=== PATIENT | male | born 1955 | race Caucasian/White ===

== ENCOUNTER 2017-04-28 13:37 | Day surgery (SDC) | payer BC ==
[2017-04-27 09:18] VITALS: BMI 30.4
[~2017-04-28 13:37] MED LIST: LACTATED RINGERS 1,000 ML IV SCH
[2017-04-28 14:05] VITALS: RESP 16; TEMP 97.9
[2017-04-28] MEDS ORDERED: LIDOCAINE 1% 20 ML VIAL (10MG/ML) FOR IV START INTRADERMA ONE (14:06)
[2017-04-28] MEDS ORDERED: PROPOFOL 10 MG/ML 20 ML VIAL IV ONE (14:25)
[2017-04-28] MEDS ORDERED: fentaNYL (PF) 50 MCG/ML 2 ML AMP ONE (14:25)
[2017-04-28] MEDS ORDERED: MIDAZOLAM 2 MG/2 ML VIAL ONE (14:25)
--- NOTE | 2017-04-28 14:25 | P.GSHP ---
History of Present Illness H&P Date: 04/28/17 Chief Complaint: Screening colonoscopy 61 yrs old male presents for colonoscopy. Personal history of colon polyps . Last scope 3 yrs ago. No change in bowel habits. 90 lbs weight loss with weight watchers Past Medical History Past Medical History: GERD/Reflux, Hyperlipidemia, Hypertension, Sleep Apnea/ CPAP/BIPAP Additional Past Medical History / Comment(s): hx colon polyps History of Any Multi-Drug Resistant Organisms: None Reported Past Surgical History: Orthopedic Surgery Additional Past Surgical History / Comment(s): sleep apnea surgery,lt knee arthroscopy Past Anesthesia/Blood Transfusion Reactions: No Reported Reaction Additional Past Anesthesia/Blood Transfusion Reaction / Comment(s): no hx blood transfusion Smoking Status: Current some day smoker - Past Family History Father Family Medical History: Cancer, Myocardial Infarction ([place]) Additional Family Medical History / Comment(s): leukemia Mother Family Medical History: Cancer, Diabetes Mellitus Brother(s) Family Medical History: Cancer Additional Family Medical History / Comment(s): leukemia Medications and Allergies Home Medications Medication Instructions Recorded Confirmed Type Ascorbic Acid [Vitamin C] 500 mg PO HS 04/27/17 04/27/17 History Aspirin 81 mg PO DAILY 04/27/17 04/27/17 History Citalopram Hydrobromide [CeleXA] 20 mg PO HS 04/27/17 04/27/17 History Lisinopril 40 mg PO HS 04/27/17 04/27/17 History Multivit-Min/FA/Lycopen/Lutein 1 each PO DAILY 04/27/17 04/27/17 History [Centrum Silver Men Tablet] Omeprazole 20 mg PO HS 04/27/17 04/27/17 History Simvastatin 40 mg PO HS 04/27/17 04/27/17 History Allergies Allergy/AdvReac Type Severity Reaction Status Date / Time No Known Allergies Allergy Verified 04/27/17 09:08 Surgical - Exam Vital Signs Temp Pulse Resp BP Pulse Ox 97.9 F 54 L 16 137/86 99 04/28/17 13:59 04/28/17 13:59 04/28/17 13:59 04/28/17 13:59 04/28/17 13:59 General: Patient is alert and oriented to time, place and person and cooperative with exam. He is not in acute distress. HEENT: No pallor, no icterus, no thyroid enlargement, no cervical lymphadenopathy. Chest: Bilateral equal breath sounds present. No wheezes, no crackles. Cardiovascular: Regular rate and rhythm Neurologic: Cranial nerves II-XII intact. Strength upper and lower extremities 5/5. No focal neurologic deficits. Gait is normal. Psychiatric: No anxiety or psychosis. No suicidal thoughts. Assessment and Plan (1) Screen for colon cancer Status: Acute (2) Personal history of colonic polyps Status: Acute Plan: Colonoscopy with possible bx Informed consent obtained. Risks, benefits and potential complications explained
--- NOTE | 2017-04-28 14:33 | P.OP ---
Date of Procedure: 04/28/17 Preoperative Diagnosis: History of colon polyps Sigmoid diverticulosis Postoperative Diagnosis: Same Procedure(s) Performed: Colonoscopy Implants: Anesthesia: MAC Surgeon: Megan Hester Condition: stable Disposition: PACU Indications for Procedure: 61 years old male presents for surveillance colonoscopy. Prior colonoscopy 3 years ago and had multiple polyps. Operative Findings: Colonoscopy Sigmoid diverticulosis Description of Procedure: The patient was brought to the endoscopy suite and placed in lateral decubitus position. IV sedation was given as per anesthesia team. Patient was on continuous vitals and pulse oximetry monitoring throughout the procedure. A timeout was performed to verify correct patient and correct procedure. Perianal examination did not show any external hemorrhoids. Digital rectal examination was performed. No masses or gross blood. A well-lubricated Olympus colonoscope was passed per rectally and was gradually advanced beyond the sigmoid colon, splenic flexure, transverse colon, hepatic flexure and cecum. The ileocecal valve was visualized, The colonoscope was gradually withdrawn inspecting all the mucosal surfaces. Bowel prep was good. No polyps, masses, AV malformations noted. Sigmoid diverticulosis noted without any evidence of acute diverticulitis. The scope was gradually withdrawn and retroflexed in the rectum . Grade 1 internal hemorrhoids seen. Total withdrawal time was greater than 6 minutes . Patient tolerated the procedure well and was taken to post anesthesia care unit in stable condition. Recommend repeat colonoscopy in 5 years .
[2017-04-28 15:26] VITALS: BP 122/74; PULSE 57
== END 2017-04-28 15:52 | disposition home or self-care (01) ==
LOC: ORWHC2ENDO 13:37
PROVIDERS: ATTEND Surgery
DX: Z12.11 Encounter for screening for malignant neoplasm of colon (principal); K57.30 Diverticulosis of large intestine without perforation or abscess without bleeding; Z86.010 Personal history of colon polyps; K21.9 Gastro-esophageal reflux disease without esophagitis; E78.5 Hyperlipidemia, unspecified; I10 Essential (primary) hypertension; G47.30 Sleep apnea, unspecified; Z72.0 Tobacco use; Z79.82 Long term (current) use of aspirin; Z79.899 Other long term (current) drug therapy
CPT/HCPCS: J2250; J3010; J2704; G0105

== ENCOUNTER → 2021-01-29 | Outpatient (CLI) | payer MEDICARE, BC ==
--- NOTE | 2021-01-29 15:42 | CONS ---
CONSULTATION DATE OF SERVICE: 01/29/2021 This 65-year-old gentleman has been evaluated in the sleep center for obstructive sleep apnea-hypopnea syndrome. HISTORY OF PRESENT ILLNESS/SLEEP-WAKE EVALUATION: The patient's usual sleep schedule from midnight until 6 a.m. No problems with falling asleep. The patient has snoring and witnessed episodes of stopped breathing during the sleep by his . Positive history of sleep talking. The patient has been diagnosed with obstructive sleep apnea about 20 years ago, was started on treatment with CPAP, but did not like it and had a UPPP and tonsillectomy. After surgery, his snoring was less, but now it has come back and he has more problems. He wakes up from sleep several times with 2 episodes of nocturia. seeing bad dreams. No history of hypnagogic hallucinations, sleep paralysis or cataplexy. Caraway Sleepiness Scale in very high range of 18. He may take up to 2 naps a day anytime. PAST MEDICAL HISTORY: Positive for hypertension, hyperlipidemia, acid reflux, restless leg symptoms. PAST SURGICAL HISTORY: Back surgery and left knee surgery. SOCIAL HISTORY: Positive for smoking on and off for about one year. Alcohol consumption once a week. MEDICATIONS: Lisinopril 30 mg once a day, citalopram 20 mg 1-1/2 tablet daily, amlodipine 5 mg once at bedtime, 25 mg one at bedtime, lorazepam 0.5 mg as needed. FAMILY HISTORY: Positive for heart problems. REVIEW OF SYSTEMS: Snoring, sleep apneas and awakenings from sleep. Significant daytime sleepiness. No fevers. No double vision. No recent chest pain. No shortness of breath. No abdominal pain. No bleeding episodes. No blood in the urine. No seizure episodes. PHYSICAL EXAMINATION: GENERAL: gentleman without distress. VITAL SIGNS: BP 151/87, HR 61, RR 16, height 6 feet 4 inches, weight 307.2, body mass index 37.2, temperature 97.6, oxygen saturation on room air 95%. HEENT: PERRLA, EOMI. Oropharynx extremely low position of soft palate. Mallampati 4. NECK: Wide neck 18 inches in circumference. LUNGS: Clear to percussion and to auscultation. Good air exchange. No wheezing or rhonchi. HEART: S1, S2 regular. No murmurs, gallops, or rubs. ABDOMEN: Soft and nontender. Bowel sounds are present. No organomegaly appreciated. EXTREMITIES: No clubbing or cyanosis. MAJOR GIFTS DIRECTOR: Awake, alert, and oriented X3. Cranial nerves 2 to 7 intact. There is no fasciculation or atrophy. noted. No focal deficits observed. IMPRESSION: 1. Loud snoring with witnessed episodes of stopped breathing during sleep. 2. History of obstructive sleep apnea in the past and low position of soft palate, Mallampati 4, wide neck 18 inches in circumference. Obstructive sleep apnea- hypopnea syndrome. 3. Obesity, body mass index 37.2. 4. Status post UPPP. 5. Status post tonsillectomy. 6. Patient does have significant excessive daytime sleepiness with Caraway Sleepiness Scale at 18 with necessity to include hypersomnia in differential diagnosis. 7. Hypertension. 8. Hyperlipidemia. 9. Acid reflux. 10.History of restless legs symptoms. 11.Status post back surgery. 12.Status post left knee surgery. 13. PLAN: 1. Polysomnography for evaluation of patient's breathing during sleep. 2. CPAP/BiPAP titration if sleep study confirms obstructive sleep apnea-hypopnea syndrome. 3. Preferable position during sleep on the side. 4. No driving if patient feels any sleepiness. 5. I will see patient for follow up visit to explain results of testing and following plan. Thank you very much for referring this patient for consultation. Sincerely, Delon Hopkins MD, PhD, FAASM Diplomat of [employer] Manager of [facility] [place] MMODL / IJN: [id number] /
== END ==
CPT/HCPCS: 99211

== ENCOUNTER 2021-03-12 11:15 | Emergency (ER) | payer MEDICARE, BC ==
[2021-03-12 11:23] VITALS: RESP 18; TEMP 98
[2021-03-12] MEDS ORDERED: SODIUM CHLORIDE 0.9% 1,000 ML IV STA (11:55)
[2021-03-12] MEDS ORDERED: MORPHINE SULFATE 4 MG/ML SYRINGE IVP STA (11:55)
[2021-03-12 12:15] LABS: Basophils % (A) 0 %; Eosinophils # (A) 0.3 k/uL (0-0.7); Eosinophils % (A) 4 %; HCT 47.1 % (39.0-53.0); HGB 15.2 gm/dL (13.0-17.5); Lymphocytes # (A) 1.3 k/uL (1.0-4.8); Lymphocytes % (A) 20 %; MCH 29.9 pg (25.0-35.0); MCHC 32.3 g/dL (31.0-37.0); MCV 92.8 fL (80.0-100.0); Mean Platelet Volume 7.1; Monocytes # (A) 0.3 k/uL (0-1.0); Monocytes % (A) 5 %; Neutrophils # (A) 4.5 k/uL (1.3-7.7); Neutrophils % (A) 69 %; Platelet Count 192 k/uL (150-450); RBC 5.07 m/uL (4.30-5.90); RDW 13.8 % (11.5-15.5); WBC 6.4 k/uL (3.8-10.6)
[2021-03-12 12:30] LABS: ALT 20 U/L (4-49); AST 26 U/L (17-59); African American GFR (CKD) >90 (>60 ml/min/1.73 sqM); Alkaline Phosphatase 64 U/L (38-126); Amylase 62 U/L (30-110); Anion Gap 5 mmol/L; Blood Urea Nitrogen 18 mg/dL (9-20); Carbon Dioxide 29 mmol/L (22-30); Chloride 105 mmol/L (98-107); Glucose 101 mg/dL (74-99); Lipase 55 U/L (23-300); Non-African American GFR(CKD) 82 (>60 ml/min/1.73 sqM); Potassium 4.5 mmol/L (3.5-5.1); Sodium 139 mmol/L (137-145); Total Bilirubin 0.5 mg/dL (0.2-1.3); Total Protein 6.6 g/dL (6.3-8.2)
--- NOTE | 2021-03-12 13:53 | CT ---
EXAMINATION TYPE: CT abdomen pelvis w con DATE OF EXAM: 03/12/2021 COMPARISON: 06-26 INDICATION: Pelvic pain DLP: 2449.7 mGycm, Automated exposure control for dose reduction was used. CONTRAST: 100 mL of Isovue 300. Study performed without Oral Contrast TECHNIQUE: Axial images were obtained from above the diaphragm to the pubic rami in the axial plane a t 5 mm thick sections. Reconstructed images are reviewed on the computer in the coronal plane. FINDINGS: Limited CT sections are obtained the lung bases. The lung bases are clear. CT ABDOMEN: Liver: Scattered cysts are within the liver. These measured between 4 and 10 Hounsfield units. Spleen: Normal right splenule is anterior to the spleen. Pancreas: Normal Adrenal glands: The adrenal glands are normal. Gallbladder: Normal Kidneys: No masses are evident. No hydronephrosis is present. No cysts are present. Delayed images were obtained through the kidneys, which remain unremarkable. Aorta: Vascular calcification is within the aorta. Inferior vena cava: Normal. CT PELVIS: Loops of bowel within the abdomen and pelvis are normal. This study is performed without oral con trast limiting bowel evaluation. Appendix: Identified. No suspicious dilated tubular structures or inflammatory changes are evident. Urinary bladder: Normal. Genitourinary structures: Prostate is normal. Osseous structures: No suspicious lytic or sclerotic lesions. IMPRESSIONS: 1. No suspicious acute abnormality to account for pelvic pain. 2. Scattered benign-appearing hepatic cysts
[2021-03-12 13:59] LABS: Appearance,Urine Clear (Clear); Bilirubin,Urine Negative (Negative); Blood,Urine Negative (Negative); Color,Urine Yellow; Glucose,Urine (UA) Negative (Negative); Ketones,Urine Negative (Negative); Leukocyte Esterase,Urine Negative (Negative); Nitrite,Urine Negative (Negative); PH, Urine 6.5 (5.0-8.0); Protein,Urine Negative (Negative); Specific Gravity,Urine 1.023 (1.001-1.035); Urobilinogen,Urine <2.0 mg/dL (<2.0)
--- NOTE | 2021-03-12 14:55 | ED ---
General Adult HPI - General Chief complaint: Abdominal Pain Stated complaint: Abd pain/leg injury/hip pain Time Seen by Provider: 03/12/21 11:28 Source: patient Mode of arrival: ambulatory Limitations: no limitations - History of Present Illness Initial comments: 65-year-old male with a past medical history of hyperlipidemia, hypertension presents to the emergency room for a chief complaint of left lower quadrant pain. Patient has had left lower quadrant pain for the past several days, states that he is moving his hip worsens this. Patient also has diarrhea. This has happened several times over the past day or so. He denies melena or hematochezia. Denies fevers. Denies vomiting. Patient also has a wound on his lower leg from 1 week ago. Patient saw his doctor today who started him on an antibiotic.Patient has no other complaints at this time including shortness of breath, chest pain, nausea or vomiting, headache, or visual changes. - Related Data Home Medications Medication Instructions Recorded Confirmed Citalopram Hydrobromide [CeleXA] 30 mg PO HS 04/27/17 03/12/21 Multivit-Min/FA/Lycopen/Lutein 1 tab PO HS 04/27/17 03/12/21 [Centrum Silver Men Tablet] lisinopriL 40 mg PO DAILY 04/27/17 03/12/21 Calcium Carbonate [Calcium] 600 mg PO DAILY 03/12/21 03/12/21 Cephalexin [Keflex] 500 mg PO Q8HR 03/12/21 03/12/21 Cholecalciferol [Vitamin D3 (25 25 mcg PO DAILY 03/12/21 03/12/21 Mcg = 1000 Iu)] Rosuvastatin Calcium 5 mg PO HS 03/12/21 03/12/21 Zinc 50 mg PO DAILY 03/12/21 03/12/21 amLODIPine [Norvasc] 5 mg PO HS 03/12/21 03/12/21 Previous Rx's Medication Instructions Recorded Dicyclomine [Bentyl] 20 mg PO TID PRN #20 tablet 03/12/21 Allergies Allergy/AdvReac Type Severity Reaction Status Date / Time No Known Allergies Allergy Verified 03/12/21 13:54 Review of Systems ROS Statement: Those systems with pertinent positive or pertinent negative responses have been documented in the HPI. ROS Other: All systems not noted in ROS Statement are negative. Past Medical History Past Medical History: GERD/Reflux, Hyperlipidemia, Hypertension, Sleep Apnea/CPAP/BIPAP Additional Past Medical History / Comment(s): hx colon polyps History of Any Multi-Drug Resistant Organisms: None Reported Past Surgical History: Orthopedic Surgery Additional Past Surgical History / Comment(s): sleep apnea surgery,lt knee arthroscopy, L hand Past Anesthesia/Blood Transfusion Reactions: No Reported Reaction Additional Past Anesthesia/Blood Transfusion Reaction / Comment(s): no hx blood transfusion Past Psychological History: No Psychological Hx Reported Smoking Status: Never smoker Past Alcohol Use History: Occasional Past Drug Use History: None Reported - Past Family History Father Family Medical History: Cancer, Myocardial Infarction ([place]) Additional Family Medical History / Comment(s): leukemia Mother Family Medical History: Cancer, Diabetes Mellitus Brother(s) Family Medical History: Cancer Additional Family Medical History / Comment(s): leukemia General Exam Limitations: no limitations General appearance: alert, in no apparent distress Head exam: Present: atraumatic, normocephalic, normal inspection Eye exam: Present: normal appearance, PERRL, EOMI. Absent: scleral icterus, conjunctival injection, periorbital swelling ENT exam: Present: normal exam, mucous membranes moist Neck exam: Present: normal inspection. Absent: tenderness, meningismus, lymphadenopathy Respiratory exam: Present: normal lung sounds bilaterally. Absent: respiratory distress, wheezes, rales, rhonchi, stridor Cardiovascular Exam: Present: regular rate, normal rhythm, normal heart sounds. Absent: systolic murmur, diastolic murmur, rubs, gallop, clicks GI/Abdominal exam: Present: soft, tenderness (Left lower quadrant tenderness. No right lower quadrant tenderness. No upper abdominal tenderness.), normal bowel sounds. Absent: distended, guarding, rebound Extremities exam: Present: full ROM (Full range of motion of the left lower extremity.), normal capillary refill (Capillary refill less than 2 seconds left lower extremity.). Absent: other (No edema left lower extremity.) Course Vital Signs 03/12/21 03/12/21 11:20 12:59 Temperature 98 F Pulse Rate 63 60 Respiratory 18 18 Rate Blood Pressure 129/78 141/88 O2 Sat by Pulse 98 99 Oximetry Medical Decision Making - Medical Decision Making Vitals are stable. HPI and physical exam as documented. CBC CMP unremarkable. Urinalysis unremarkable. CT abdomen and pelvis shows no suspicious acute abnormality to account for pelvic pain. There are scattered benign-appearing hepatic cysts which I discussed with him. Patient was given morphine and had complete resolution of pain. At this time patient can be discharged home to follow up with primary care. He does have a GI doctor that he can follow up with, had a colonoscopy 1 year ago. He will return here for any worsening symptoms. Small wound left lower anterior maynard with minimal erythema surrounding the wound consistent with granulation tissue, no cellulitis noted - Lab Data Result diagrams: 03/12/21 12:01 03/12/21 12:01 Lab Results 03/12/21 03/12/21 03/12/21 Range/Units 12: 12: 12:01 WBC 6.4 (3.8-10.6) k/uL RBC 5.07 (4.30-5.90) m/uL Hgb 15.2 (13.0-17.5) gm/dL Hct 47.1 (39.0-53.0) % MCV 92.8 (80.0-100.0) fL MCH 29.9 (25.0-35.0) pg MCHC 32.3 (31.0-37.0) g/dL RDW 13.8 (11.5-15.5) % Plt Count 192 (150-450) k/uL MPV 7.1 Neutrophils % 69 % Lymphocytes % 20 % Monocytes % 5 % Eosinophils % 4 % Basophils % 0 % Neutrophils # 4.5 (1.3-7.7) k/uL Lymphocytes # 1.3 (1.0-4.8) k/uL Monocytes # 0.3 (0-1.0) k/uL Eosinophils # 0.3 (0-0.7) k/uL Basophils # 0.0 (0-0.2) k/uL Sodium 139 (137-145) mmol/L Potassium 4.5 (3.5-5.1) mmol/L Chloride 105 (98-107) mmol/L Carbon Dioxide 29 (22-30) mmol/L Anion Gap 5 mmol/L BUN 18 (9-20) mg/dL Creatinine 0.96 (0.66-1.25) mg/dL Est GFR (CKD-EPI)AfAm >90 (>60 ml/min/1.73 sqM) Est GFR (CKD-EPI)NonAf 82 (>60 ml/min/1.73 sqM) Glucose 101 H (74-99) mg/dL Plasma Lactic Acid Bryce 1.0 (0.7-2.0) mmol/L Calcium 10.0 (8.4-10.2) mg/dL Total Bilirubin 0.5 (0.2-1.3) mg/dL AST 26 (17-59) U/L ALT 20 (4-49) U/L Alkaline Phosphatase 64 (38-126) U/L Total Protein 6.6 (6.3-8.2) g/dL Albumin 4.0 (3.5-5.0) g/dL Amylase 62 (30-110) U/L Lipase 55 (23-300) U/L Urine Color Urine Appearance (Clear) Urine pH (5.0-8.0) Ur Specific [place] (1.001-1.035) Urine Protein (Negative) Urine Glucose (UA) (Negative) Urine Ketones (Negative) Urine Blood (Negative) Urine Nitrite (Negative) Urine Bilirubin (Negative) Urine Urobilinogen (<2.0) mg/dL Ur Leukocyte Esterase (Negative) 03/12/21 Range/Units 13:37 WBC (3.8-10.6) k/uL RBC (4.30-5.90) m/uL Hgb (13.0-17.5) gm/dL Hct (39.0-53.0) % MCV (80.0-100.0) fL MCH (25.0-35.0) pg MCHC (31.0-37.0) g/dL RDW (11.5-15.5) % Plt Count (150-450) k/uL MPV Neutrophils % % Lymphocytes % % Monocytes % % Eosinophils % % Basophils % % Neutrophils # (1.3-7.7) k/uL Lymphocytes # (1.0-4.8) k/uL Monocytes # (0-1.0) k/uL Eosinophils # (0-0.7) k/uL Basophils # (0-0.2) k/uL Sodium (137-145) mmol/L Potassium (3.5-5.1) mmol/L Chloride (98-107) mmol/L Carbon Dioxide (22-30) mmol/L Anion Gap mmol/L BUN (9-20) mg/dL Creatinine (0.66-1.25) mg/dL Est GFR (CKD-EPI)AfAm (>60 ml/min/1.73 sqM) Est GFR (CKD-EPI)NonAf (>60 ml/min/1.73 sqM) Glucose (74-99) mg/dL Plasma Lactic Acid Bryce (0.7-2.0) mmol/L Calcium (8.4-10.2) mg/dL Total Bilirubin (0.2-1.3) mg/dL AST (17-59) U/L ALT (4-49) U/L Alkaline Phosphatase (38-126) U/L Total Protein (6.3-8.2) g/dL Albumin (3.5-5.0) g/dL Amylase (30-110) U/L Lipase (23-300) U/L Urine Color Yellow Urine Appearance Clear (Clear) Urine pH 6.5 (5.0-8.0) Ur Specific [place] 1.023 (1.001-1.035) Urine Protein Negative (Negative) Urine Glucose (UA) Negative (Negative) Urine Ketones Negative (Negative) Urine Blood Negative (Negative) Urine Nitrite Negative (Negative) Urine Bilirubin Negative (Negative) Urine Urobilinogen <2.0 (<2.0) mg/dL Ur Leukocyte Esterase Negative (Negative) Disposition Clinical Impression: Abdominal pain Disposition: HOME SELF-CARE Condition: Good Instructions (If sedation given, give patient instructions): Abdominal Pain (ED) Additional Instructions: Please take Bentyl as needed for pain. Follow-up with your doctor. If symptoms persist follow-up with GI. If you have any worsening symptoms return to the emergency room. Prescriptions: Dicyclomine [Bentyl] 20 mg PO TID PRN #20 tablet PRN Reason: abdominal pain Is patient prescribed a controlled substance at d/c from ED?: No Referrals: Tad Pepe DO [Primary Care Provider] - 1-2 days Janel Li MD [STAFF PHYSICIAN] - 1-2 days Time of Disposition: 14:54
[2021-03-12 15:22] VITALS: BP 135/85; PULSE 58
== END 2021-03-12 15:20 | disposition home or self-care (01) ==
LOC: EC 11:15
DX: R10.32 Left lower quadrant pain (principal); R19.7 Diarrhea, unspecified; M25.559 Pain in unspecified hip; S81.802A Unspecified open wound, left lower leg, initial encounter; I10 Essential (primary) hypertension; E78.5 Hyperlipidemia, unspecified; K21.9 Gastro-esophageal reflux disease without esophagitis; G47.30 Sleep apnea, unspecified; Z79.899 Other long term (current) drug therapy; X58.XXXA Exposure to other specified factors, initial encounter
CPT/HCPCS: 36415; 80053; 82150; 83605; 83690; 85025; 81003; 74177; 99284; 96374; J2270; Q9967

== ENCOUNTER → 2021-05-15 | Outpatient (CLI) | payer MEDICARE, BC ==
--- NOTE | 2021-05-15 18:28 | SFUN ---
SLEEP CENTER FOLLOW UP NOTE DATE OF SERVICE: 05/15/2021 INTERVAL HISTORY: 65-year-old gentleman has been followed in Sleep Center for treatment of obstructive sleep apnea-hypopnea syndrome. Recently the patient had polysomnogram which showed the patient has sleep apnea and then he had CPAP titration. Today is his first visit after he was started on treatment with CPAP. While on treatment with CPAP, he sleeps better, does not snore and feels significantly more alert during the day than before treatment. Debary Sleepiness Scale on CPAP came down from 18 to 3 today. I checked his CPAP unit. Pressure is 11 cm of water, usage. Start 30/30 nights for more than 4 hours, average 7.4 hours per night. Leak is 23 L/minute, which is borderline. Apnea-hypopnea index is only 2.2 which is totally perfect. I checked air filter. It already needs to be replaced [place]. I discussed results of the sleep studies, diagnostic polysomnogram and titration with patient also in details. I discussed with the patient, related to usage of the CPAP equipment, position of the machine and necessity to change the filter. CURRENT MEDICATIONS: Lisinopril 30 mg once a day, citalopram 20 mg one and 1/2 tablet a day, amlodipine 5 mg once a day, lorazepam 0.5 mg as needed. Rosuvastatin. PHYSICAL EXAMINATION: GENERAL: Patient in no distress. BP 152/87, HR 70, RR 15, weight 309.2, temperature 97.4, oxygen saturation at room air 97%. Height 6 inches 4. Oropharynx extremely low position of soft palate, Mallampati IV. NECK: Supple, no JVD. Thyroid is not palpable. LUNGS: Clear to percussion and to auscultation. Good air exchange. No wheezing or rhonchi. HEART: S1, S2 regular. No murmurs, gallops, or rubs. ABDOMEN: Obese. Soft and nontender. Bowel sounds are present. No organomegaly appreciated. EXTREMITIES: No clubbing or cyanosis. RECORDS MANAGEMENT TECHNICIAN: Awake, alert, and oriented X3. Cranial nerves 2 to 7 intact. There is no fasciculation or atrophy. noted. No focal deficits observed. IMPRESSION: 1. Obstructive sleep apnea-hypopnea syndrome patient demonstrated 100% compliance with treatment. Normal respiration on CPAP, benefitting from treatment. 2. Significant improvements of her alertness during the day. Debary Sleepiness Scale on treatment with CPAP decreased from 18-3, which is normal. 3. Obesity. 4. Periodic limb movements. 5. Hypertension. PLAN: 1. No necessity for any additional testing related to sleepiness, sleepiness improved on CPAP. 2. Clinically no complaints of leg movements and no necessity to start any pharmacotherapy for periodic limb movements. 3. Patient will continue to use PAP equipment every night for the whole night. 4. Sleep hygiene with regular time in bed for at least 7-1/2 to 8 hours. 5. Precautions related to driving. No driving if feeling sleepiness. 6. I will maintain all necessary prescription for PAP supplies including mask, tube, filters. 7. Watching weight. 8. Follow-up visit in 6 months or earlier if patient has any problems. 9. At the present time, no necessity to start any pharmacotherapy for periodic limb movements. Thank you very much for allowing me to participate in management of your patient. Sincerely, Delon Hopkins MD, PhD, FAASM Diplomat of [employer] Sleep Medicine Board of [employer] Screen Printer of [facility] [place] MMODL / ERICKA: [id number] /
== END ==
LOC: SLEEP 14:04
PROVIDERS: ATTEND Internal Medicine
DX: G47.33 Obstructive sleep apnea (adult) (pediatric) (principal); Z99.89 Dependence on other enabling machines and devices; I10 Essential (primary) hypertension; G47.61 Periodic limb movement disorder; E66.9 Obesity, unspecified; Z79.899 Other long term (current) drug therapy

== ENCOUNTER 2021-08-14 14:44 | Emergency (ER) | payer MEDICARE, BC ==
--- NOTE | 2021-08-14 17:14 | XR ---
EXAMINATION: XR chest 2V DATE AND TIME: 08/14/2021 5:05 PM CLINICAL INDICATION: Congestion, cough,: Positive TECHNIQUE: PA and lateral COMPARISON: None FINDINGS: The lungs are clear. The pleural spaces are negative. The cardiac silhouette is not enlarged. The remainder of the mediastinal silhouette is unremarkable. The skeletal structures and soft tissues are negative for acute findings. IMPRESSION: No definite acute radiographic process.
--- NOTE | 2021-08-14 17:49 | ED ---
General Adult HPI - General Chief complaint: Upper Respiratory Infection Stated complaint: Covid +, wants BAM Time Seen by Provider: 08/14/21 16:35 Source: patient, RN notes reviewed Mode of arrival: ambulatory Limitations: no limitations - History of Present Illness Initial comments: 65-year-old male with a past medical history of GERD, hyperlipidemia, hypertension presents to the emergency room for a chief complaint of COVID-19 symptoms. Patient states he has had a cough, fatigue, congestion for 8 days now. States his is positive for COVID-19. States he is not having any shortness of breath. He has not vaccinated. He is requesting antibody infusion.Patient has no other complaints at this time including shortness of breath, chest pain, abdominal pain, nausea or vomiting, headache, or visual changes. - Related Data Home Medications Medication Instructions Recorded Confirmed Citalopram Hydrobromide [CeleXA] 30 mg PO HS 04/27/17 08/14/21 Multivit-Min/FA/Lycopen/Lutein 1 tab PO HS 04/27/17 08/14/21 [Centrum Silver Men Tablet] lisinopriL 40 mg PO HS 04/27/17 08/14/21 Cholecalciferol [Vitamin D3 (25 25 mcg PO HS 03/12/21 08/14/21 Mcg = 1000 Iu)] Rosuvastatin Calcium 5 mg PO HS 03/12/21 08/14/21 Zinc 50 mg PO HS 03/12/21 08/14/21 Allergies Allergy/AdvReac Type Severity Reaction Status Date / Time No Known Allergies Allergy Verified 08/14/21 18:13 Review of Systems ROS Statement: Those systems with pertinent positive or pertinent negative responses have been documented in the HPI. ROS Other: All systems not noted in ROS Statement are negative. Past Medical History Past Medical History: GERD/Reflux, Hyperlipidemia, Hypertension, Sleep Apnea/CPAP/BIPAP Additional Past Medical History / Comment(s): hx colon polyps History of Any Multi-Drug Resistant Organisms: None Reported Past Surgical History: Orthopedic Surgery Additional Past Surgical History / Comment(s): sleep apnea surgery,lt knee arthroscopy, L hand Past Anesthesia/Blood Transfusion Reactions: No Reported Reaction Additional Past Anesthesia/Blood Transfusion Reaction / Comment(s): no hx blood transfusion Past Psychological History: No Psychological Hx Reported Smoking Status: Never smoker Past Alcohol Use History: Occasional Past Drug Use History: None Reported - Past Family History Father Family Medical History: Cancer, Myocardial Infarction ([place]) Additional Family Medical History / Comment(s): leukemia Mother Family Medical History: Cancer, Diabetes Mellitus Brother(s) Family Medical History: Cancer Additional Family Medical History / Comment(s): leukemia General Exam Limitations: no limitations General appearance: alert, in no apparent distress Head exam: Present: atraumatic Eye exam: Present: normal appearance, PERRL, EOMI. Absent: scleral icterus, conjunctival injection ENT exam: Present: normal exam, mucous membranes moist Neck exam: Present: normal inspection, full ROM. Absent: tenderness Respiratory exam: Present: normal lung sounds bilaterally. Absent: respiratory distress, wheezes Cardiovascular Exam: Present: regular rate, normal rhythm, normal heart sounds GI/Abdominal exam: Present: soft, normal bowel sounds. Absent: distended, tenderness Neurological exam: Present: alert Course Vital Signs 08/14/21 08/14/21 14:52 18:36 Temperature 99.1 F 99.8 F H Pulse Rate 83 Respiratory 18 Rate Blood Pressure 159/83 O2 Sat by Pulse 97 Oximetry Medical Decision Making - Medical Decision Making Vitals are stable. Patient is 97% on room air. He did test positive for COVID- 19. Chest x-ray unremarkable. Patient given antibody infusion. Discharged home with strict return parameters. - Lab Data Lab Results 08/14/21 Range/Units 14:57 Coronavirus (PCR) Detected A (Not Detectd) Disposition Clinical Impression: COVID-19 Disposition: HOME SELF-CARE Condition: Good Instructions (If sedation given, give patient instructions): Coronavirus Disease 2019 (COVID-19) Additional Instructions: Please follow up with primary care. Return to the ER for shortness of breath or worsening symptoms. Is patient prescribed a controlled substance at d/c from ED?: No Referrals: Tad Pepe DO [Primary Care Provider] - 1-2 days Time of Disposition: 17:48
[2021-08-14] MEDS ORDERED: SODIUM CHLORIDE 0.9% 50 ML IVPB ONE (18:00)
[2021-08-14] MEDS ORDERED: SOTROVIMAB (EUA) 500 MG in SODIUM CHLORIDE 0.9% 100 ML IVPB ONE (18:00)
[2021-08-14 19:43] VITALS: BP 157/94; PULSE 75; RESP 20; TEMP 99.3
== END 2021-08-14 19:41 | disposition home or self-care (01) ==
LOC: EC 14:44
DX: U07.1 COVID-19 (principal); I10 Essential (primary) hypertension; E78.5 Hyperlipidemia, unspecified; K21.9 Gastro-esophageal reflux disease without esophagitis; Z79.899 Other long term (current) drug therapy
CPT/HCPCS: 87635; 71046; 99284; Q0247

== ENCOUNTER → 2021-11-13 | Outpatient (CLI) | payer MEDICARE, BC ==
--- NOTE | 2021-11-13 17:39 | SFUN ---
SLEEP CENTER FOLLOW UP NOTE DATE OF SERVICE: 11/13/2021 This 65-year-old gentleman has been followed in Sleep Center for treatment of obstructive sleep apnea-hypopnea syndrome. The patient continues to use his CPAP equipment every night, getting his supplies on time. [place] Sleepiness Scale increased today to 12. I checked his CPAP unit. Pressure is 11 cm of water. Usage is 30/30 nights and 28/30 nights for more than 4 hours, average 7.7 hours per night. Leak is 16 L/minute, which is borderline. Apnea-hypopnea index increased to 10.2. MEDICATIONS: 1. Lisinopril 30 mg once a day. 2. Rosuvastatin. 3. Citalopram 20 mg one and a half tablet a day. PHYSICAL EXAMINATION: GENERAL: Pleasant pleasant patient in no distress. VITAL SIGNS: BP 129/74, HR 70, RR 18, weight 326 pounds, height 6 feet 4 inches, temperature 97.5, oxygen saturation at room air 97%. HEENT: PERRLA, EOMI, evaluation of oropharynx showed tongue protrudes midline. Extremely low position of soft palate; Mallampati IV. NECK: Supple, no JVD. Thyroid is not palpable. LUNGS: Clear to percussion and to auscultation. Good air exchange. No wheezing or rhonchi. HEART: S1, S2 regular. No murmurs, gallops, or rubs. ABDOMEN: Soft and nontender. Bowel sounds are present. No organomegaly appreciated. EXTREMITIES: No clubbing or cyanosis. MAILING MACHINE ASSISTANT: Awake, alert, and oriented X3. Cranial nerves 2 to 7 intact. There is no fasciculation or atrophy. noted. No focal deficits observed. IMPRESSION: 1. Obstructive sleep apnea-hypopnea syndrome. Patient demonstrated 100% compliance with treatment, benefitting from treatment. Apnea-hypopnea index reading from the machine today increased to 10.2. 2. [place] Sleepiness Scale again increased to 12, which is above normal today. 3. Obesity. 4. Periodic limb movements. 5. Hypertension. PLAN: 1. Occasionally the patient has leg movements during sleep. I talked to him about the possibility of using medications for leg movements. At present he prefers not to use any additional medications. 2. I adjusted his CPAP unit to automatic regimen, range of the pressure from 7 to 15 cm of water. 3. Patient will continue to use PAP equipment every night for the whole night. 4. Sleep hygiene with regular time in bed for at least 7-1/2 to 8 hours. 5. Precautions related to driving. No driving if feeling sleepiness. 6. I will maintain all necessary prescription for PAP supplies including mask, tube, filters. 7. Watching weight. 8. Follow-up visit in 6 months or earlier if patient has any problems. Thank you very much for allowing me to participate in the management of your patient. Sincerely, Delon Hopkins MD, PhD, FAASM Diplomat of [place] [employer] Sleep Medicine Board of [place] [employer] Recruiting Assistant of [facility] [place] MMODL / HUYN: [phone] /
== END ==
LOC: SLEEP 14:38
PROVIDERS: ATTEND Internal Medicine
DX: G47.33 Obstructive sleep apnea (adult) (pediatric) (principal); E66.9 Obesity, unspecified; G47.61 Periodic limb movement disorder; I10 Essential (primary) hypertension; F17.200 Nicotine dependence, unspecified, uncomplicated; Z79.899 Other long term (current) drug therapy

== ENCOUNTER → 2022-06-04 | Outpatient (CLI) | payer MEDICARE, BC ==
--- NOTE | 2022-06-04 11:05 | P.PN ---
Subjective DATE: 06/04/2022 FOLLOW UP VISIT. Patient with obstructive sleep apnea hypopnea syndrome return to sleep center for follow-up visit. Information from previous visit have been reviewed. Patient is using PAP equipment every night for the whole night, getting PAP supplies in time. The patient does not have significant problems with the mask, PAP unit and humidification. During previous visit apnea-hypopnea index was min more than 10 and I changed pressure in CPAP unit to Auto7-15 cm of water. [place] sleepiness scale is slightly increased to 11, better than during previous visit when it was 12. I checked PAP unit. Air filter needs to be replaced PAP unit pressure 7-15, average 13 cm H2O. Usage is 100 % for more then 4 hours, average 8.1 hours per night. Leak is 17 l/m, which is in acceptable range. Apnea Hypopnea Index is 1.5, which is normal. MEDICATIONS:1. Citalopram 20 mg once a day 2. Lisinopril 40 mg once a day 3. Amlodipine 5 mg once a day 4. Rosuvastatin 5 mg once a day During physical exam: GENERAL: A pleasant patient without any distress. VITAL SIGNS: BP 150/85, HR 59, RR 16, weight 325.6, temperature 96.8, oxygen saturation at room air 95 % . HEENT: PERRLA, EOMI.low position of soft palate, Mallapati 4 . NECK: Supple. No JVD. LUNGS: Clear to percussion and to auscultation. Good air exchange. No wheezing or rhonchi. HEART: S1, S2 regular. ABDOMEN: Soft and nontender. Obese EXTREMITIES: No clubbing or cyanosis. KINDERGARTEN CLASSROOM TEACHER: Awake, alert, and oriented x3. No focal deficit. Impressions: 1. Obstructive sleep apnea-hypopnea syndrome. Patient demonstrated great compliance with treatment, benefiting from treatment. Respiration normalized after pressure was changed during previous visit. 2. Obesity body mass index 39, no significant changes of weights comparing with previous visit. 3. Hypertension. 4. Hyperlipidemia. 5. History of periodic limb movements, no clinical complaints, although feels slightly sleepy during the day. Plan: 1. Continue using PAP equipment every night for the whole night. 2. To change air filter at least 1-2 times per month. 3. PAP unit should stay lower then position of the head. 4. Advised patient to remove all remaining water from humidifier canister daily and make it dry after each usage. Refill canister with fresh distilled water before each usage. 5. Sleep hygiene with regular time in bed for at least 8 hours. 6. Precautions related to driving. No driving if feel any sleepiness. 7. I will maintain prescription for PAP supplies including mask, tube, filters. 8. Follow up visit in 6 months or earlier if patient has any problems. 9. Losing weight. Thank you very much for allowing me to participate in the management of your patient. Delon Hopkins MD, PhD, FAASM. Diplomat of [place] [employer], Sleep Medicine Board by [place] [employer] Wheel Inspector of [facility] [place]
== END ==
LOC: SLEEP 10:23
PROVIDERS: ATTEND Internal Medicine
DX: G47.33 Obstructive sleep apnea (adult) (pediatric) (principal); E66.9 Obesity, unspecified; Z68.39 Body mass index [BMI] 39.0-39.9, adult; I10 Essential (primary) hypertension; E78.5 Hyperlipidemia, unspecified; G47.61 Periodic limb movement disorder; Z99.89 Dependence on other enabling machines and devices; F17.200 Nicotine dependence, unspecified, uncomplicated

== ENCOUNTER 2022-06-15 07:43 | Day surgery (SDC) | payer MEDICARE, BC ==
[2022-06-12 11:28] VITALS: BMI 39.5
[2022-06-15] MEDS ORDERED: LACTATED RINGERS 1,000 ML IV SCH (07:57)
[2022-06-15] MEDS ORDERED: LIDOCAINE 1% (10MG/ML) FOR IV START INTRADERMA PRN (07:57)
[2022-06-15 08:04] VITALS: RESP 16; TEMP 96.6
--- NOTE | 2022-06-15 08:10 | P.GSHP ---
History of Present Illness H&P Date: 06/15/22 CHIEF COMPLAINT: Colon screen HISTORY OF PRESENT ILLNESS: The patient is a 66-year-old male who presents for colon screen. Lower endoscopy was offered for further evaluation and management. PAST MEDICAL HISTORY: Please see list. PAST SURGICAL HISTORY: Please see list. MEDICATIONS: Please see list. ALLERGIES: Please see list. SOCIAL HISTORY: No illicit drug use FAMILY HISTORY: No reports of Crohn disease or ulcerative colitis. REVIEW OF ORGAN SYSTEMS: CONSTITUTIONAL: No reports of fevers or chills. PHYSICAL EXAM: VITAL SIGNS: Stable GENERAL: Well-developed pleasant in no acute distress. HEENT: No scleral icterus. Extraocular movements grossly intact. Moist buccal mucosa. NECK: Supple without lymphadenopathy. CHEST: Unlabored respirations. Equal bilateral excursions. CARDIOVASCULAR: Regular rate and rhythm. Distal 2+ pulses. ABDOMEN: Soft, nontender, nondistended. MUSCULOSKELETAL: No clubbing, cyanosis, or edema. ASSESSMENT: 1. Colon screen. PLAN: 1. Recommend proceeding with a lower endoscopy Past Medical History Past Medical History: GERD/Reflux, Hyperlipidemia, Hypertension, Sleep Apnea/CPAP/BIPAP Additional Past Medical History / Comment(s): hx colon polyps. Dupuytren's contracture History of Any Multi-Drug Resistant Organisms: None Reported Past Surgical History: Orthopedic Surgery Additional Past Surgical History / Comment(s): sleep apnea surgery,lt knee arthroscopy, L hand for Dupuytren's Past Anesthesia/Blood Transfusion Reactions: No Reported Reaction Additional Past Anesthesia/Blood Transfusion Reaction / Comment(s): no hx blood transfusion Past Psychological History: Depression Smoking Status: Never smoker Past Alcohol Use History: Occasional Additional Past Alcohol Use History / Comment(s): smokes cigar once per yr Past Drug Use History: None Reported - Past Family History Father Family Medical History: Cancer, Myocardial Infarction ([place]) Additional Family Medical History / Comment(s): leukemia Mother Family Medical History: Cancer, Diabetes Mellitus Brother(s) Family Medical History: Cancer Additional Family Medical History / Comment(s): leukemia Medications and Allergies Home Medications Medication Instructions Recorded Confirmed Type Citalopram Hydrobromide [CeleXA] 30 mg PO HS 04/27/17 06/12/22 History Multivit-Min/FA/Lycopen/Lutein 1 tab PO HS 04/27/17 06/12/22 History [Centrum Silver Men Tablet] lisinopriL 40 mg PO HS 04/27/17 06/12/22 History Aspirin 325 mg PO DAILY 06/12/22 06/12/22 History Lovastatin [Mevacor] 5 mg PO HS 06/12/22 06/12/22 History amLODIPine [Norvasc] 5 mg PO HS 06/12/22 06/12/22 History Allergies Allergy/AdvReac Type Severity Reaction Status Date / Time No Known Allergies Allergy Verified 06/12/22 11:17 Surgical - Exam Vital Signs Temp Pulse Resp BP Pulse Ox 96.6 F L 77 16 162/89 96 06/15/22 08:02 06/15/22 08:02 06/15/22 08:02 06/15/22 08:02 06/15/22 08:02
[2022-06-15] MEDS ORDERED: PROPOFOL 10 MG/ML 20 ML VIAL IV ONE (08:29)
--- NOTE | 2022-06-15 09:13 | P.PCN ---
Date of Procedure: 06/15/22 Description of Procedure: PREOPERATIVE DIAGNOSIS: Personal history of colon polyps POSTOPERATIVE DIAGNOSIS: Tubular adenoma ascending colon Colitis, sigmoid OPERATION: Colonoscopy to the ileocecal valve and appendiceal orifice, cecum Colonoscopy with cold forceps biopsy SURGEON: Kayla Ramirez MD. ANESTHESIA: MAC. INDICATIONS: The patient is an 66-year-old male who presents personal history of colon polyps. Last colonoscopy 5 years. Benefits and risks were described and informed consent was obtained. DESCRIPTION OF PROCEDURE: The patient had undergone Sutab prep. The patient had been brought into the operating room and laid in the left lateral decubitus position. After adequate intravenous sedation, the rectum was examined with 2% lidocaine jelly. The prostate was unremarkable. External hemorrhoids were encountered. The rectal tone was within normal limits. No lesions were palpated in the rectal vault. An Olympus colonoscope was advanced until the cecum, ileocecal valve and appendiceal orifice were clearly viewed. The prep was good. Sigmoid diverticulosis was encountered. Colonic polyps were found and removed. No evidence of focal colitis was found. Retroflexion of the scope demonstrated grade 2 internal hemorrhoids without active bleeding or inflammation. The colon was desufflated. The patient had tolerated the procedure well. Withdrawal time was over 6 minutes. FINDINGS: Aronchick preparation quality scale 2 (1-5) Internal hemorrhoids, grade 2 External hemorrhoids, grade 2 No arteriovenous malformations. No sigmoid diverticulosis Removal of 2 polyps: - Cold forceps biopsy at ascending colon 2, 5 to 6 mm polyp. Focal colitis at sigmoid colon, short segment RECOMMENDATIONS: Repeat colonoscopy 5 years, 2026 Plan - Discharge Summary Discharge Rx Participant: No New Discharge Prescriptions: Continue Multivit-Min/FA/Lycopen/Lutein [Centrum Silver Men Tablet] 1 tab PO HS lisinopriL 40 mg PO HS Citalopram Hydrobromide [CeleXA] 30 mg PO HS Aspirin 325 mg PO DAILY amLODIPine [Norvasc] 5 mg PO HS Lovastatin [Mevacor] 5 mg PO HS Discharge Medication List Citalopram Hydrobromide [CeleXA] 30 mg PO HS 04/27/17 [History] Multivit-Min/FA/Lycopen/Lutein [Centrum Silver Men Tablet] 1 tab PO HS 04/27/17 [History] lisinopriL 40 mg PO HS 04/27/17 [History] Aspirin 325 mg PO DAILY 06/12/22 [History] Lovastatin [Mevacor] 5 mg PO HS 06/12/22 [History] amLODIPine [Norvasc] 5 mg PO HS 06/12/22 [History] Follow up Appointment(s)/Referral(s): Kayla Ramirez MD [STAFF PHYSICIAN] - As Needed Patient Instructions/Handouts: Colorectal Polyps (GEN), Colitis (ED) Activity/Diet/Wound Care/Special Instructions: Repeat colonoscopy 5 years, 2026 Discharge Disposition: HOME SELF-CARE
[2022-06-15 09:14] VITALS: BP 123/75; PULSE 61
== END 2022-06-15 09:38 | disposition home or self-care (01) ==
LOC: ORWHC2ENDO 07:43
PROVIDERS: ATTEND Surgery Plastic and Reconstructive Surgery
DX: Z12.11 Encounter for screening for malignant neoplasm of colon (principal); D12.2 Benign neoplasm of ascending colon; K52.89 Other specified noninfective gastroenteritis and colitis; K57.30 Diverticulosis of large intestine without perforation or abscess without bleeding; K64.1 Second degree hemorrhoids; K64.4 Residual hemorrhoidal skin tags; K21.9 Gastro-esophageal reflux disease without esophagitis; E78.5 Hyperlipidemia, unspecified; I10 Essential (primary) hypertension; G47.33 Obstructive sleep apnea (adult) (pediatric); F32.A Depression, unspecified; F17.200 Nicotine dependence, unspecified, uncomplicated; Z86.010 Personal history of colon polyps; Z86.59 Personal history of other mental and behavioral disorders; Z82.49 Family history of ischemic heart disease and other diseases of the circulatory system; Z80.6 Family history of leukemia; Z83.3 Family history of diabetes mellitus; Z79.82 Long term (current) use of aspirin; Z79.810 Long term (current) use of selective estrogen receptor modulators (SERMs); Z79.891 Long term (current) use of opiate analgesic
CPT/HCPCS: 88305; 45380; J2704

== ENCOUNTER → 2022-12-10 | Outpatient (CLI) | payer MEDICARE, BC ==
--- NOTE | 2022-12-10 10:50 | P.PN ---
Subjective DATE: 12/10/2022 FOLLOW UP VISIT. Patient with obstructive sleep apnea hypopnea syndrome return to sleep center for follow-up visit. Information from previous visit have been reviewed. Patient is using PAP equipment every night for the whole night, getting PAP supplies in time. The patient does not have significant problems with the mask, PAP unit and humidification. [place] sleepiness scale is 9, which is borderline. I checked information from PAP unit and explained it to the patient in details. PAP unit pressure 7-15, average 14.6 cm H2O. Usage is 100 % for more then 4 hours, average 7.6 hours per night. Leak is 14 l/m, which is in acceptable range. Apnea Hypopnea Index is 5.1, which is borderline, for the last night apnea- hypopnea index was 2. MEDICATIONS:1. Lisinopril 40 mg once a day 2. Amlodipine 5 mg once a day 3. Citalopram 20 mg once a day 4. Rosuvastatin 5 mg once a day During physical exam: GENERAL: A pleasant patient without any distress. VITAL SIGNS: BP 157/91, HR 74, RR 16 , weight 329, temperature 98.3, oxygen saturation at room air 98 % . HEENT: PERRLA, EOMI.low position of soft palate, Mallapati 4 . NECK: Supple. No JVD. LUNGS: Clear to percussion and to auscultation. Good air exchange. No wheezing or rhonchi. HEART: S1, S2 regular. ABDOMEN: Soft and nontender. Obese EXTREMITIES: No clubbing or cyanosis. SALES FLOOR ASSOCIATE: Awake, alert, and oriented x3. No focal deficit. Impressions: 1. Obstructive sleep apnea-hypopnea syndrome. Patient demonstrated great compliance with treatment, benefiting from treatment. Apnea-hypopnea index is borderline 5.1. 2. Obesity, body mass index 40.5, patient increased his weight on 4 pounds. 3. Hypertension. 4. Hyperlipidemia. 5. History of periodic limb movements, no significant problems at the present time. Plan: 1. Continue using PAP equipment every night for the whole night. I changed pressure in CPAP unit to the range 7-16 cm of water. 2. To change air filter at least 1-2 times per month. 3. PAP unit should stay lower then position of the head. 4. Advised patient to remove all remaining water from humidifier canister daily and make it dry after each usage. Refill canister with fresh distilled water before each usage. 5. Sleep hygiene with regular time in bed for at least 8 hours. 6. Precautions related to driving. No driving if feel any sleepiness. 7. I will maintain prescription for PAP supplies including mask, tube, filters. 8. Watching and losing weight. 9. Follow up visit in 6 months or earlier if patient has any problems. Thank you very much for allowing me to participate in the management of your pa tient. Delon Hopkins MD, PhD, FAASM. Diplomat of [place] [employer], Sleep Medicine Board by [place] Telemetry Monitor of [facility] [place]
== END ==
LOC: SLEEP 10:22
PROVIDERS: ATTEND Internal Medicine
DX: G47.33 Obstructive sleep apnea (adult) (pediatric) (principal); E66.9 Obesity, unspecified; E78.5 Hyperlipidemia, unspecified; I10 Essential (primary) hypertension; Z68.41 Body mass index [BMI] 40.0-44.9, adult; Z79.899 Other long term (current) drug therapy; G47.61 Periodic limb movement disorder; Z99.89 Dependence on other enabling machines and devices; F17.200 Nicotine dependence, unspecified, uncomplicated
CPT/HCPCS: 99212

== ENCOUNTER 2023-03-04 20:24 | Emergency (ER) | payer MEDICARE, BC ==
[2023-03-04] MEDS ORDERED: HYDROmorphone 1 MG/ML 1 ML SYRINGE IVP STA ×2 (20:38→21:22)
[2023-03-04] MEDS ORDERED: SODIUM CHLORIDE 0.9% 1,000 ML IV STA (20:41)
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
[2023-03-04 21:08] LABS: Basophils % (A) 0 %; Eosinophils # (A) 0.5 k/uL (0-0.7); Eosinophils % (A) 6 %; HCT 44.9 % (39.0-53.0); HGB 14.6 gm/dL (13.0-17.5); Lymphocytes # (A) 2.3 k/uL (1.0-4.8); Lymphocytes % (A) 29 %; MCH 30.3 pg (25.0-35.0); MCHC 32.5 g/dL (31.0-37.0); MCV 93.3 fL (80.0-100.0); Mean Platelet Volume 7.7; Monocytes # (A) 0.5 k/uL (0-1.0); Monocytes % (A) 7 %; Neutrophils # (A) 4.4 k/uL (1.3-7.7); Neutrophils % (A) 56 %; Platelet Count 201 k/uL (150-450); RBC 4.81 m/uL (4.30-5.90); RDW 13.7 % (11.5-15.5); WBC 7.8 k/uL (3.8-10.6)
[2023-03-04 21:17] LABS: INR 0.9 (<1.2); Prothrombin Time 9.8 sec (9.0-12.0)
[2023-03-04 21:38] LABS: ALT 33 U/L (4-49); AST 39 U/L (17-59); African American GFR (CKD) >90 (>60 ml/min/1.73 sqM); Albumin 4.1 g/dL (3.5-5.0); Alcohol 74 mg/dL; Alkaline Phosphatase 66 U/L (38-126); Anion Gap 9 mmol/L; Blood Urea Nitrogen 24 mg/dL (9-20); Calcium 9.1 mg/dL (8.4-10.2); Carbon Dioxide 22 mmol/L (22-30); Chloride 107 mmol/L (98-107); Glucose 96 mg/dL (74-99); Non-African American GFR(CKD) 81 (>60 ml/min/1.73 sqM); Potassium 3.8 mmol/L (3.5-5.1); Sodium 138 mmol/L (137-145); Total Bilirubin 0.3 mg/dL (0.2-1.3); Total Protein 6.9 g/dL (6.3-8.2)
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
[2023-03-04 23:05] VITALS: BP 142/88; PULSE 73; RESP 18; TEMP 97.6
== END 2023-03-04 22:54 | disposition other institution (70) ==
LOC: EC 20:24
DX: T20.00XA Burn of unspecified degree of head, face, and neck, unspecified site, initial encounter (principal); T31.20 Burns involving 20-29% of body surface with 0% to 9% third degree burns; E78.5 Hyperlipidemia, unspecified; I10 Essential (primary) hypertension; G47.30 Sleep apnea, unspecified; Z79.899 Other long term (current) drug therapy; Z79.82 Long term (current) use of aspirin
CPT/HCPCS: 36415; 93005; 86900; 86901; 80053; 83605; 84484; 85025; 85610; 85730; 86850; 71045; 99285; 96374; 96376; 96361 ×2; G0480; J1170; 80320

== ENCOUNTER → 2023-10-07 | Outpatient (CLI) | payer MEDICARE, BC ==
--- NOTE | 2023-10-07 16:59 | P.PN ---
Subjective DATE: 10/07/2023 FOLLOW UP VISIT. Patient with obstructive sleep apnea hypopnea syndrome return to sleep center for follow-up visit. Information from previous visit have been reviewed. Patient is using PAP equipment every night for the whole night, getting PAP supplies in time. The patient does not have significant problems with the mask, PAP unit and humidification. [place] sleepiness scale is 9. I checked information from PAP unit. PAP unit pressure 6-17, average 14.9 cm H2O. Usage is 100 % for more then 4 hours, average 7.6 hours per night. Leak is 25 l/m, which is in acceptable range. Apnea Hypopnea Index is 3.8, which is normal. MEDICATIONS:1. Amlodipine 10 mg once a day 2. Lexapro 20 mg once a day 3. Lisinopril 40 mg once a day 4. Crestor 5 mg once a day During physical exam: GENERAL: A pleasant patient without any distress. VITAL SIGNS: BP 138/83, HR 75, RR 12, weight 326.2, temperature 97.7, oxygen saturation at room air 96 % . HEENT: PERRLA, EOMI.low position of soft palate, Mallapati 4 . NECK: Supple. No JVD. LUNGS: Clear to percussion and to auscultation. Good air exchange. No wheezing or rhonchi. HEART: S1, S2 regular. ABDOMEN: Soft and nontender. Obese EXTREMITIES: No clubbing or cyanosis. STUDY LEAD: Awake, alert, and oriented x3. No focal deficit. Impressions: 1. Obstructive sleep apnea-hypopnea syndrome. Patient demonstrated great compliance with treatment, benefiting from treatment. 2. Hypertension. 3. Obesity, BMI 39.9, patient lost 3 pounds compared with previous visit. 4. Hyperlipidemia. 5. History of periodic limb movements, clinically no problems at the present ti me. Plan: 1. Continue using PAP equipment every night for the whole night. 2. To change air filter at least 1-2 times per month. 3. PAP unit should stay lower then position of the head. 4. Advised patient to remove all remaining water from humidifier canister daily and make it dry after each usage. Refill canister with fresh distilled water before each usage. 5. Sleep hygiene with regular time in bed for at least 8 hours. 6. Precautions related to driving. No driving if feel any sleepiness. 7. I will maintain prescription for PAP supplies including mask, tube, filters. 8. Follow up visit in 6 months or earlier if patient has any problems. 9. Watching and losing weight. Thank you very much for allowing me to participate in the management of your patient. Delon Hopkins MD, PhD, FAASM. Diplomat of [place] [employer], Sleep Medicine Board by [place] [employer] Event Mgr of [facility] [place]
== END ==
LOC: 3 N SLEEP 15:48
PROVIDERS: ATTEND Internal Medicine
DX: G47.33 Obstructive sleep apnea (adult) (pediatric) (principal); I10 Essential (primary) hypertension; E66.9 Obesity, unspecified; F17.200 Nicotine dependence, unspecified, uncomplicated; E78.5 Hyperlipidemia, unspecified; Z68.39 Body mass index [BMI] 39.0-39.9, adult; Z79.899 Other long term (current) drug therapy; Z99.89 Dependence on other enabling machines and devices; Z79.82 Long term (current) use of aspirin
CPT/HCPCS: 99212

== ENCOUNTER → 2023-11-23 | Outpatient (CLI) | payer MEDICARE, BC ==
--- NOTE | 2023-11-23 13:15 | MM ---
Reason for Exam: Clinical finding. Baseline mammogram. Indicated Problems: Lump or thickening of the left side for 1 Month(s). Prior Study Comparison: Patient's first Mammogram. No prior studies available for comparison. Tissue Density: The breasts are almost entirely fatty. Findings: Analyzed By CAD. No significant mass, suspicious microcalcification, or other discrete abnormality is seen. Palpable marker placed along the upper outer quadrant of the left breast near the nipple. Overall Assessment: Incomplete: need additional imaging evaluation, BI-RAD 0 Management: Diagnostic Breast Ultrasound of the left breast. For the palpable site. Electronically signed and approved by: Santiago Miguel M.D. Radiologist
--- NOTE | 2023-11-23 13:51 | USB ---
Reason for Exam: Clinical finding. Technique: Method: Targeted. Findings: The area of palpable concern of the left breast, the axilla of the left breast and the retroareolar of the left breast were scanned. Targeted ultrasound to o'clock left breast of the patient's palpable site. Additional scanning of the subareolar region and axilla. No solid or cystic lesion is seen. No duct ectasia. No axillary lymphadenopathy. Overall Assessment: Benign, BI-RAD 2 Management: Clinical Management of the left breast in 1 year. For the patient's palpable site. If any enlarging abnormality is detected, the patient can be rescanned. Results were given to the patient verbally at the time of exam. Electronically signed and approved by: Santiago Miguel M.D. Radiologist
== END | disposition home or self-care (01) ==
LOC: RADMAMWWP 12:32
PROVIDERS: ATTEND Family Medicine
DX: N63.21 Unspecified lump in the left breast, upper outer quadrant (principal); R92.313 Mammographic fatty tissue density, bilateral breasts
CPT/HCPCS: 77066; 76642; G0279; 77062

== ENCOUNTER → 2024-05-17 | Outpatient (CLI) | payer MEDICARE, BC ==
[2024-05-17 13:30] VITALS: BP 132/74; PULSE 90; RESP 16; TEMP 98.3
--- NOTE | 2024-05-17 14:00 | P.PROGSL ---
Subjective DATE: 05/17/2024 FOLLOW UP VISIT. Patient with obstructive sleep apnea hypopnea syndrome return to sleep center for follow-up visit. Information from previous visit have been reviewed. Patient is using PAP equipment every night for the whole night, getting PAP supplies in time. The patient does not have significant problems with the mask, PAP unit and humidification. [place] sleepiness scale is increased to 11. I checked information from PAP unit. PAP unit pressure 7-15, average 13.8 cm H2O. Usage is 100% for more then 4 hours, average 6.9 hours per night. Leak is 23 l/m, which is in acceptable range. Apnea Hypopnea Index is 4.4, which is normal. MEDICATIONS have been reviewed, please see below. During physical exam: GENERAL: A pleasant patient without any distress. VITAL SIGNS: Please see below, weight is 321 lbs. HEENT: PERRLA, EOMI.low position of soft palate, Mallapati 4 . NECK: Supple. No JVD. LUNGS: Clear to percussion and to auscultation. Good air exchange. No wheezing or rhonchi. HEART: S1, S2 regular. ABDOMEN: Soft and nontender.[] EXTREMITIES: No clubbing or cyanosis. WEAVING PROFESSOR: Awake, alert, and oriented x3. No focal deficit. Impressions: 1. Obstructive sleep apnea-hypopnea syndrome. Patient demonstrated great compliance with treatment, benefiting from treatment. 2. Hypertension. 3. Obesity, patient lost 5 pounds comparing with previous visit, BMI 40.0. 4. Hyperlipidemia. 5. History of periodic limb movements, no complaints at the present time. Plan: 1. Continue using PAP equipment every night for the whole night. 2. Sleep hygiene with regular time in bed for at least 7.5-8 hours 3. PAP unit should stay lower then position of the head. 4. Advised patient to remove all remaining water from humidifier canister daily and make it dry after each usage. Refill canister with fresh distilled water before each usage. 5. Watching and continue losing weight. 6. Precautions related to driving. No driving if feel any sleepiness. 7. I will maintain prescription for PAP supplies including mask, tube, filters. 8. Follow up visit in 6 months or earlier if patient has any problems. Thank you very much for allowing me to participate in the management of your patient. Delon Hopkins MD, PhD, FAASM. Diplomat of [place] [employer], Sleep Medicine Board by [place] [employer] Manager In Home of [facility] [place] Objective - Vital Signs Vital Signs: Vital Signs Temp 98.3 F 05/17/24 13:29 Pulse 90 05/17/24 13:29 Resp 16 05/17/24 13:29 BP 132/74 05/17/24 13:29 Pulse Ox 94 L 05/17/24 13:29 FiO2 Home Medications: Home Medications Medication Instructions Recorded Confirmed Type Citalopram Hydrobromide [CeleXA] 30 mg PO HS 04/27/17 06/12/22 History Mv-Min/Folic/K1/Lycopen/Lutein 1 tab PO HS 04/27/17 06/12/22 History [Centrum Silver Men Tablet] lisinopriL 40 mg PO HS 04/27/17 05/17/24 History Aspirin 325 mg PO DAILY 06/12/22 06/12/22 History Lovastatin [Mevacor] 5 mg PO HS 06/12/22 06/12/22 History amLODIPine [Norvasc] 5 mg PO HS 06/12/22 05/17/24 History Citalopram Hydrobromide 20 mg PO DAILY 05/17/24 05/17/24 History [Citalopram HBr] Rosuvastatin Calcium [Crestor] 5 mg PO DAILY 05/17/24 05/17/24 History
== END ==
LOC: 3 N SLEEP 13:16
PROVIDERS: ATTEND Internal Medicine
CPT/HCPCS: 99212

== ENCOUNTER → 2025-01-17 | Outpatient (CLI) | payer MEDICARE, BC ==
[2025-01-17 10:56] VITALS: BP 135/79; PULSE 68; RESP 16; TEMP 97.8
--- NOTE | 2025-01-17 11:20 | P.PROGSL ---
Subjective DATE: 01/17/2025 FOLLOW UP VISIT. Patient with obstructive sleep apnea hypopnea syndrome return to sleep center for follow-up visit. Information from previous visit have been reviewed. Patient is using PAP equipment every night for the whole night, getting PAP supplies in time. The patient does not have significant problems with the mask, PAP unit and humidification. Fel[place] sleepiness scale is increased to 18. I checked information from PAP unit. PAP unit pressure 7-16, average 13.4 cm H2O. Usage is 90% for more then 4 hours, average 5.7 hours per night. Leak is 23 l/m, which is in acceptable range. Apnea Hypopnea Index is 4.7, which is normal. MEDICATIONS have been reviewed, please see below. During physical exam: GENERAL: A pleasant patient without any distress. VITAL SIGNS: Please see below, weight is 331 lbs. HEENT: PERRLA, EOMI.low position of soft palate, Mallapati 4 . NECK: Supple. No JVD. LUNGS: Clear to percussion and to auscultation. Good air exchange. No wheezing or rhonchi. HEART: S1, S2 regular. ABDOMEN: Soft and nontender. Obese EXTREMITIES: No clubbing or cyanosis. FOOD TECHNOLOGY TEACHER: Awake, alert, and oriented x3. No focal deficit. Impressions: 1. Obstructive sleep apnea-hypopnea syndrome. Patient demonstrated great compliance with treatment, benefiting from treatment. 2. Obesity, BMI 40.8, patient increased weight on 10 pounds comparing with previous visit. 3. Hypertension. 4. Hyperlipidemia. 5. History of periodic limb movements, no complaints at the present time. 6. Back pain, some nights patient sleeps on the chair because of back problems. Plan: 1. Continue using PAP equipment every night for the whole night. 2. Sleep hygiene with regular time in bed for at least 7.5-8 hours 3. PAP unit should stay lower then position of the head. 4. Advised patient to remove all remaining water from humidifier canister daily and make it dry after each usage. Refill canister with fresh distilled water before each usage. 5. Watching and losing weight. 6. Precautions related to driving. No driving if feel any sleepiness. 7. I will maintain prescription for PAP supplies including mask, tube, filters. 8. Follow up visit in months or earlier if patient has any problems. Thank you very much for allowing me to participate in the management of your patient. Delon Hopkins MD, PhD, FAASM. Diplomat of [employer], Sleep Medicine Board by [employer] [facility] [place] Objective - Vital Signs Vital Signs: Vital Signs Temp 97.8 F 01/17/25 10:53 Pulse 68 01/17/25 10:53 Resp 16 01/17/25 10:53 BP 135/79 01/17/25 10:53 Pulse Ox 97 01/17/25 10:53 FiO2 Intake & Output 01/16/25 01/17/25 01/17/25 18:59 06:59 18:59 Weight 150.139 kg Home Medications: Home Medications Medication Instructions Recorded Confirmed Type Citalopram Hydrobromide [CeleXA] 30 mg PO HS 04/27/17 06/12/22 History Mv-Min/Folic/K1/Lycopen/Lutein 1 tab PO HS 04/27/17 06/12/22 History [Centrum Silver Men Tablet] lisinopriL 40 mg PO HS 04/27/17 01/17/25 History Aspirin 325 mg PO DAILY 06/12/22 06/12/22 History Lovastatin [Mevacor] 5 mg PO HS 06/12/22 06/12/22 History amLODIPine [Norvasc] 5 mg PO HS 06/12/22 01/17/25 History Citalopram Hydrobromide 20 mg PO DAILY 05/17/24 01/17/25 History [Citalopram HBr] Rosuvastatin Calcium [Crestor] 5 mg PO DAILY 05/17/24 01/17/25 History
== END ==
LOC: 3 N SLEEP 10:42
PROVIDERS: ATTEND Internal Medicine
DX: G47.33 Obstructive sleep apnea (adult) (pediatric) (principal); I10 Essential (primary) hypertension; E78.5 Hyperlipidemia, unspecified; M54.9 Dorsalgia, unspecified; F17.200 Nicotine dependence, unspecified, uncomplicated; E66.9 Obesity, unspecified; Z68.41 Body mass index [BMI] 40.0-44.9, adult; Z99.89 Dependence on other enabling machines and devices; Z87.39 Personal history of other diseases of the musculoskeletal system and connective tissue
CPT/HCPCS: 99212

== ENCOUNTER → 2025-01-19 | Outpatient (CLI) | payer MEDICARE, BC ==
[2025-01-19 15:53] LABS: HCT 45.2 % (39.6-50.0); HGB 14.4 g/dL (13.0-17.0); MCH 29.5 pg (27.0-32.0); MCHC 31.9 g/dL (32.0-37.0); MCV 92.6 FL (80.0-97.0); Mean Platelet Volume 10.6 FL (9.5-12.2); NRBC Per 100 WBC 0 X 10*3/uL (0.00-0.01); Platelet Count 186 X 10*3/uL (140-440); RBC 4.88 X 10*6/uL (4.40-5.60); RDW 13.3 % (11.5-14.5); WBC 5.51 X 10*3/uL (4.50-10.00)
[2025-01-19 16:53] LABS: Blood Urea Nitrogen 15.2 mg/dL (9.0-27.0); Carbon Dioxide 25.3 mmol/L (21.6-31.8); Chloride 104 mmol/L (96-109); Potassium 4.6 mmol/L (3.5-5.5); Sodium 141 mmol/L (135-145)
== END | disposition home or self-care (01) ==
LOC: LABWHC1 09:43
PROVIDERS: ATTEND Internal Medicine Cardiovascular Disease
DX: Z01.812 Encounter for preprocedural laboratory examination (principal); R07.2 Precordial pain
CPT/HCPCS: 36415; 80051; 82565; 84520; 85027